=== PATIENT | female | born 1970 | race Hispanic/Latino ===

== ENCOUNTER → 2020-07-17 | Outpatient (CLI) | payer MEDICARE ==
[~2020-07-17] MED LIST: DULO20 PO; GABA-529 PO; GABA-531 PO; LORA0.5T2 PO; LOSA25TA41 PO; OMEP20TA2 PO; ONDA8TAB5 PO; PERICOLACE PO; PSEU60 PO; ROSU5TAB PO; TYL3 PO; TYL4 PO; [UNRECOGNIZED DRUG - CODE] PO
== END | disposition home or self-care (01) ==
LOC: RAH 11:04
PROVIDERS: ATTEND Urology
DX: N20.0 Calculus of kidney (principal); N28.89 Other specified disorders of kidney and ureter; Z90.49 Acquired absence of other specified parts of digestive tract
CPT/HCPCS: 74018; 76100

== ENCOUNTER → 2020-12-02 | Outpatient (CLI) | payer MEDICARE ==
[~2020-12-02] MED LIST changes: +PSEU-221 PO; -PSEU60 PO
== END | disposition home or self-care (01) ==
LOC: RAH 11:37
PROVIDERS: ATTEND Urology
DX: N20.0 Calculus of kidney (principal)
CPT/HCPCS: 74018; 76100

== ENCOUNTER → 2025-02-17 | Outpatient (CLI) | payer MEDICARE ==
--- NOTE | 2025-02-17 15:23 | HMCIMG ---
EXAM: CR Abdomen, 1 View. CLINICAL HISTORY: CALCULUS OF KIDNEY COMPARISON: X-ray [facility] 06/15/2021 FINDINGS: BOWEL: The bowel gas pattern is within normal limits. PERITONEUM/SOFT TISSUES: No free air evident. Small 3 mm calcification projects within the lower pole of the right kidney. BONES: No aggressive appearing osseous lesion seen. IMPRESSION: 1. 3 mm calcification in lower pole of right kidney. /[place]
--- NOTE | 2025-02-17 17:26 | HMCIMG ---
EXAM: CR Abdomen, 7 View. CLINICAL HISTORY: CALCULUS OF KIDNEY COMPARISON: Radiographs dated February 17, 2025 FINDINGS: BOWEL: The bowel gas pattern is within normal limits. PERITONEUM/SOFT TISSUES: No free air evident. Punctate calcification overlying the right inferior renal shadow is presumed to reflect a renal calculus. BONES: No acute osseous abnormality. IMPRESSION: 1. No acute findings. 2. Punctate calcification overlying the right kidney, consistent with renal calculus. /[place]
== END | disposition home or self-care (01) ==
LOC: RAH 12:27
PROVIDERS: ATTEND Urology
DX: N20.0 Calculus of kidney (principal); N28.89 Other specified disorders of kidney and ureter
CPT/HCPCS: 74018; 76100